=== PATIENT | female | born 1990 | race Two or more races ===

== ENCOUNTER 2023-08-08 13:37 | Emergency (ER) | payer MEDICAID, OTHER ==
[~2023-08-08] VITALS: Ht 157.5 cm; Wt 67.6 kg
[2023-08-08] MEDS ORDERED: P-EP-295 PO (14:15)
[2023-08-08 14:24] VITALS: BP 121/84; TEMP 99; O2SAT 99
== END 2023-08-08 14:24 | disposition home or self-care (01) ==
LOC: ER 13:50
DX: J06.9 Acute upper respiratory infection, unspecified (principal)